=== PATIENT | female | born 1960 | race Caucasian/White ===

== ENCOUNTER → 2016-09-21 | Outpatient (CLI) | payer BC ==
[~2016-09-21] MED LIST: ALLOPURINOL300 MG PO; CLONIDINE HCL0.3 MG PO; FEXOFENADINE HC60 MG PO; FUROSEMIDE40 MG PO; LIPITOR40 MG PO; LISINOPRIL10 MG PO; METFORMIN HCL1000 M1 PO; VERAPAMIL ER240 MG PO; ZETIA PO
--- NOTE | ~2016-09-21 | CT101 ---
[facility] A Service of [facility] & [facility] RADIOLOGY TEXT RESULTS PATIENT: MARTHA CADENA [facility] : 56 UNIT #: [id number] AGE: [address]: Malathi Singh APRN SEX: F ORDER DR: [id number] [facility] [address] [place], [place] [address] [id number] O MR#: [id number] #: [id number] NAME: MARTHA CADENA : 1960 SEX: F STUDY DATE/TIME: 09/21/2016 14:45 UNIT: [facility] ROOM: STUDY DESCRIPTION: CT Maxillofacial Area Wo Cont Attending Physician: Malathi Singh A.P.R.N. Referring Physician: Malathi Singh A.P.R.N. Ordering Physician: Malathi Singh A.P.R.N. Primary Care Physician: Malathi Singh A.P.R.N. MEDICAL IMAGING REPORT This report is preliminary unless electronic signature is present EXAM CT of the facial bones without 09/21/2016 HISTORY Rule out fracture, swelling and bruising after a fall. Evaluate for fracture, fell face forward onto concrete on 09/09/2016 with left-sided facial pain and swelling since. History of hypertension and diabetes. COMMENTS CT of the facial bones performed in the axial plane without contrast followed by sagittal and coronal reconstructed images. This CT exam was performed with one or more of the following radiation dose reduction techniques: automatic exposure control, adjustment of mA and/or kV according to patient size, and iterative reconstruction. COMPARISON STUDIES There is no previous. FINDINGS Mastoid air cells are clear. Minimal mucosal disease left maxillary sinus. No sinus air-fluid level. The temporomandibular joints are located. There is small rightward nasal septal spur and deviation but no acute fracture. No nasal bone fracture is appreciated. No orbital fracture. No mandibular fracture. There is soft tissue swelling and probably a subtle hematoma associated with left cheek consistent with a site of injury. It is about 5 mm in width and 1 and 1/2 cm in length. No foreign body is appreciated. The globes are intact. The lenses are located. There is no retrobulbar hematoma seen. IMPRESSION There is no evidence for facial bone fracture. There is soft tissue injury left cheek area with likely a small hematoma. No radiopaque STS. [facility] A Service of [facility] & [facility] RADIOLOGY TEXT RESULTS PATIENT: MARTHA CADENA LOCATION: [facility] : 56 UNIT #: [id number] AGE: [address]: Malathi Singh APRN SEX: F ORDER DR: foreign body is identified. Only minor mucosal disease in the left maxillary sinus and no sinus air-fluid level. Dictated by... Kasie Rm M.D. THIS IS AN ELECTRONICALLY VERIFIED REPORT Kasie Rm M.D. at 09/22/2016 7:25 AM Ambrocio TD: 09/21/2016 18:40 JOB #: [id number] MEDICAL IMAGING REPORT Page 1 of 1 COPY
== END | disposition home or self-care (01) ==
LOC: CCAT 14:27
DX: S00.83XA Contusion of other part of head, initial encounter (principal)
CPT/HCPCS: 70486